=== PATIENT | female | born 1950 | race Caucasian/White ===

== ENCOUNTER 2016-08-25 18:13 | Inpatient (IN) | payer MEDICARE ==
--- NOTE | ~2016-08-25 | CR126 ---
[facility] A Service of [facility] & [facility] RADIOLOGY TEXT RESULTS PATIENT: AMOL ORTIZ LOCATION: [facility] 225-01 : 50 UNIT #: [id number] AGE: [address]: Chace Jfefries MD SEX: F ORDER DR: [id number] [facility] [address] [facility]. [place], [place] [address] [id number] MR#: [id number] Acc #: [id number] NAME: AMOL ORTIZ. : 1950 SEX: F STUDY DATE/TIME: 08/25/2016 18:16 UNIT: [facility] ROOM: STUDY DESCRIPTION: CR Foot Complete Min 3 View Lt Attending Physician: Glen Wynn M.D. Ordering Physician: Glen Wynn M.D. Primary Care Physician: Ra Owens M.D. MEDICAL IMAGING REPORT This report is preliminary unless electronic signature is present EXAM Left foot HISTORY Pain and swelling, no known injury, surgery 07/17/2016 for bone spur removal per patient. COMMENT 3 views of the left foot are reviewed. There is no comparison study of the left foot. There is a fracture at the base of the fifth metatarsal with displacement by about 9 mm. There is overlying soft tissue swelling. The bones are irregular in appearance and this is worrisome for possible infection and osteomyelitis. Please correlate further clinically. Findings best pursued with MRI, if the patient is a candidate. There is otherwise more diffuse soft tissue swelling and the bones are demineralized. There is some vascular calcifications concerning for diabetes or renal disease. 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 IMPRESSION 1. There is 9 mm displaced fracture at the base of the fifth metatarsal. The bones in this region are indistinct with some apparent irregular bony destruction and there is associated soft tissue swelling. This is concerning for infection. Please correlate for any clinical evidence of infection. Diagnosis of osteomyelitis and/or abscess is best pursued with an MRI of the left foot, with and without contrast, if the patient is a candidate. Please correlate with the surgical course. No prior films at this institution of the left foot. 2. Otherwise, areas of arthritis, bones are demineralized in general and soft tissue edema is seen in general. Vascular calcifications suggest underlying diabetes or renal disease. [facility] A Service of [facility] RADIOLOGY TEXT RESULTS PATIENT: AMOL ORTIZ LOCATION: C2A 225-01 : 50 UNIT #: [id number] AGE: [address]: Chace Jeffries MD SEX: F ORDER DR: STAT * RESULT Dictated by... Guadalupe Kent M.D. THIS IS AN ELECTRONICALLY VERIFIED REPORT Guadalupe Kent M.D. at 08/25/2016 11:08 PM FLORINDA/vaishali TD: 08/25/2016 18:58 JOB #: [id number] MEDICAL IMAGING REPORT Page 1 of 1 COPY
--- NOTE | ~2016-08-25 | MR60 ---
[facility] A Service of [facility] & [facility] RADIOLOGY TEXT RESULTS PATIENT: AMOL ORTIZ LOCATION: C2A : 50 UNIT #: [id number] AGE: [address]: Chace Jeffries MD SEX: F ORDER DR: [id number] [facility] [address] [facility] [place] [facility]. [place], [place] [address] [id number] I MR#: [id number] Acc #: [id number] NAME: AMOL ORTIZ. : 1950 SEX: F STUDY DATE/TIME: 08/26/2016 19:15 UNIT: C2 ROOM: 225 STUDY DESCRIPTION: MR Foot Wo Contrast Lt Attending Physician: Chace Jeffries M.D. Ordering Physician: Chace Jeffries M.D. Primary Care Physician: Ra Owens M.D. MRI CENTER REPORT This report is preliminary unless electronic signature is present. EXAM Left foot MRI without contrast, 08/26/2016 HISTORY 66-year-old female with left foot pain and swelling since 08/24/2016. Patient states recent surgery for bone spur removal 07/17/2016. Order requests evaluation for osteomyelitis left foot. History of diabetes. COMPARISON Left foot x-rays 06/25/2016 and 08/25/2016 TECHNIQUE Multiplanar, multisequence high-field MR imaging of the left foot was performed without IV gadolinium. FINDINGS Examination is limited by motion artifact on multiple sequences. Allowing for this, there is an ununited transverse fracture through the base of the fifth metatarsal. There is abnormal fluid in the fracture site and there is abnormal marrow edema and marrow replacement within the fracture fragment and base of the fifth metatarsal. The findings are highly concerning for osteomyelitis. There may be a developing abscess adjacent to the fracture site in the lateral soft tissues of the midfoot measuring 2.7 x 1 cm in size. There are multiple foci of gas within and adjacent to the questionable fluid collection concerning for infection with gas-forming organism. There is also abnormal marrow edema and marrow replacement in the distal lateral aspect of the cuboid, which is also concerning for developing osteomyelitis. There is subcutaneous soft tissue edema noted throughout the visualized midfoot, particularly the dorsal and lateral aspect. Generalized edema and atrophy of the intrinsic musculature of the foot are most consistent with chronic diabetic neuropathic change. [facility] A Service of [facility] & [facility] RADIOLOGY TEXT RESULTS PATIENT: AMOL ORTIZ LOCATION: [facility] 225-01 : 50 UNIT #: [id number] AGE: [address]: Chace Jeffries MD SEX: F ORDER DR: IMPRESSION 1. Ununited transverse fracture through the base of the fifth metatarsal. There is abnormal fluid at the fracture site as well as a suspected developing fluid collection along the lateral aspect of the fracture measuring at least 2.7 x 1 cm in size. This is concerning for a developing abscess. Multiple foci of gas noted within the suspected fluid collection and adjacent soft tissues, concerning for infection with gas-forming organism. 2. Abnormal marrow edema and marrow replacement in the fracture fragment of the fifth metatarsal and base of the fifth metatarsal most consistent with osteomyelitis. There is also abnormal marrow edema and marrow replacement in the distal lateral aspect of the cuboid concerning for early osteomyelitis. Preliminary wet read provided by Dr. Yahir Beckman at 2051 hours 08/26/2016. Dictated by... Jonh Decker M.D. THIS IS AN ELECTRONICALLY VERIFIED REPORT Jonh Decker M.D. at 08/28/2016 5:18 PM ARILE/vaishali TD: 08/27/2016 21:02 JOB #: [id number] MRI CENTER REPORT Page 1 of 1 COPY
--- NOTE | ~2016-08-25 | DS ---
Unit #: [id number] #: [id number] Patient: AMOL ORTIZ [id number] [address] [place], [place] [address] [id number] I MR#: [id number] NAME: AMOL ORTIZ. ROOM: 225 Age: 66 Sex: F Admission Date: 08/25/2016 : 1950 Discharge Date: 08/29/2016 Attending Physician: Chace Jeffries M.D. Primary Care Physician: Ra Owens M.D. DISCHARGE SUMMARY PRINCIPAL DISCHARGE DIAGNOSES 1. Left foot fifth metatarsal base fracture. 2. Left foot fifth metatarsal osteomyelitis. 3. Left foot abscess. 4. Type 2 diabetes mellitus. 5. Peripheral neuropathy. 6. Nephropathy. 7. Tobacco use. 8. Major depressive disorder. 9. Generalized anxiety disorder. 10. Chronic kidney disease stage 3. 11. Hyperlipidemia. 12. Tobacco use. PROCEDURE Bedside I and D by Podiatry on 08/28/16. 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 REASON FOR HOSPITALIZATION The patient is a 66-year-old white female with history of generalized anxiety disorder, major depressive disorder, type 2 diabetes mellitus with peripheral neuropathy and nephropathy, hyperlipidemia, tobacco use. The patient recently had a bone spur removed from the left foot fifth metatarsal. She was then walking about eight days prior to admission and had a sharp pain in the left lateral foot. It seemed to improve then she suddenly noticed that the wound had reopened up with bloody purulent discharge and she arrived in the emergency room. There, she was afebrile. Vital signs within normal limits. Creatinine was 1.5, GFR 35.9, alkaline phosphatase 104, CRP 1.4, sed rate 29. CBC normal. Three views of the left foot showed a 9 mm displaced fracture at the base of the fifth metatarsal and the patient was admitted. HOSPITAL COURSE The patient was admitted, placed on low dose sliding scale insulin, IV vancomycin, IV Zosyn. Dr. Shea, who had recently done her surgery was consulted. MRI of the foot was ordered. MRI showed an ununited transverse fracture of the base of the fifth metatarsal with a 2.5 x 1.0 cm abscess with gas formation and osteomyelitis. They did a bedside I and D. No cultures were obtained apparently. They are planning no further surgery at this time. So, the patient is being discharged home, although, truly, I felt that they should have opened the foot in the OR and gotten cultures, removed what bone seems to be there and clean the wound Unit #: [id number] #: [id number] Patient: AMOL ORTIZ but, in any case, she is being discharged home. Currently, her BMP is normal except for a creatinine of 1.5 and a GFR of 35.9. Her C-reactive protein repeated this morning was 0.6. Her CBC is normal except for hemoglobin of 10.7 and a platelet count of 127 but she has been on Lovenox since she has been here and that may be the culprit for the low platelets. In any case, she is being discharged home with: 1. A prescription for Augmentin 500 mg b.i.d. for 10 days. 2. Doxycycline 100 mg b.i.d. for 10 days. 3. Tylenol 650 mg p.o. q.6 p.r.n. 4. Neurontin 100 mg p.o. t.i.d. 5. Amitriptyline 100 mg t.i.d. 6. BuSpar 15 mg q.i.d. 7. Xanax 0.25 mg t.i.d. p.r.n. 8. Valium 5 mg b.i.d. p.r.n. 9. Lasix 20 mg four times daily. 10. Lovastatin 20 mg daily. 11. Lantus 60 units subcu q.h.s. 12. Tagamet 300 mg t.i.d. 13. Aspirin 81 mg daily. She is to follow up with Dr. Owens in one week and follow up with Dr. Seha in one week. 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 It states daily Betadine wet-to-dry dressings to the left foot per nursing. They will schedule an outpatient bone biopsy of the fifth metatarsal when she is discharged from the hospital. DIET She is on a Healthy Heart, constant carb diet. Dictated by... Chace Jeffries M.D. Justen TD: 08/30/2016 08:19 JOB #: [id number] DISCHARGE SUMMARY Page 1 of 1 X Chace Jeffries MD X DISCHARGE SUMMARY
--- NOTE | ~2016-08-25 | HP ---
Unit #: [id number] #: [id number] Patient: AMOL ROTIZ [id number] [address] [place], [place] [address] [id number] I MR#: [id number] NAME: AMOL ORTIZ ROOM: 225 Age: 66 Sex: F Admission Date: 08/25/2016 : 1950 Attending Physician: Chace Jeffries M.D. Primary Care Physician: Ra Owens M.D. 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 The wound had healed and then it suddenly popped open two days ago with bloody, purulent discharge. Arrived in the emergency room. There, she was afebrile. White count was normal. X-rays showed evidence of osteomyelitis at the base of the fifth metatarsal and she was admitted for same. ALLERGIES The patient has stated allergies to codeine and propoxyphene. MEDICATIONS Her medications prior to admission: 1. Lantus 60 units subcu q. h.s. 2. Tagamet 300 mg t.i.d. 3. BuSpar 15 mg four times daily. 4. Amitriptyline 100 mg t.i.d. 5. Lasix 20 mg q.i.d. 6. Metformin 850 mg daily. 7. Neurontin 100 mg t.i.d. 8. Aspirin 81 mg daily. 9. Lovastatin 20 mg daily. 10. Xanax 0.25 mg three times daily p.r.n. 11. Valium 5 mg b.i.d. p.r.n. SURGICAL HISTORY 1. Cholecystectomy. 2. Perirectal abscess. 3. Needle removed from her left foot. 4. Right foot fourth toe amputation. 5. Left foot surgery as mentioned above. PAST MEDICAL HISTORY 1. Major depressive disorder. 2. Generalized anxiety disorder. 3. Panic disorder. 4. Type 2 diabetes mellitus. 5. Chronic kidney disease. 6. 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 7. Hyperlipidemia. 8. Tobacco use. Unit #: [id number] #: [id number] Patient: AMOL ORTIZ SOCIAL HISTORY Smokes two packs of cigarettes daily. No alcohol or street drug use. FAMILY HISTORY Noncontributory. PHYSICAL EXAMINATION GENERAL: She is awake, alert, oriented x3, in no acute distress. VITAL SIGNS: ER vital signs - temp 98.3, pulse 71, respirations 16, blood pressure 148/63. Room air O2 sat 99%. HEENT: Unremarkable. NECK: Supple without JVD, bruits, adenopathy or thyromegaly. CHEST: Clear to auscultation. HEART: Regular rate and rhythm without any murmurs, rubs or gallops. ABDOMEN: Large, soft, nondistended, nontender with positive bowel sounds and no hepatosplenomegaly. EXTREMITIES: No clubbing, cyanosis or edema. /RECTAL: Deferred. NEUROLOGICAL: Grossly intact. Left foot has a small, about one inch, area that is scabbed over right now, not actively bleeding. There is swelling at the base of the fifth metatarsal. DIAGNOSTIC STUDIES LABORATORY: Lab values - CMP normal except for random blood sugar of 168, a creatinine of 1.5 and GFR of 35.9. Alkaline phos. 105, CRP 1.4, sed rate 29. CBC normal. IMAGING: Three views of the left foot - 9 mm displaced fracture base of the fifth metatarsal with evidence of surrounding inflammation consistent with osteomyelitis. IMPRESSION 1. Left foot osteomyelitis. 2. Left fifth metatarsal fracture. 3. Type 2 diabetes mellitus with peripheral neuropathy and nephropathy. 4. Generalized anxiety disorder. 5. Major depressive disorder. 6. Chronic kidney disease, stage 3. 7. Hyperlipidemia. 8. Tobacco use. PLAN IV antibiotics. Consult patient's surgeon. MRI of the left foot. Resume home meds less Glucophage and Valium. Other evaluation pending results of above. Please note - she is on Lovenox for DVT prophylaxis. Dictated by Chace Jeffries M.D. ABENA/renay TD: 08/26/2016 09:01 Unit #: [id number] #: [id number] Patient: AMOL ORTIZ JOB #: [id number] HISTORY AND PHYSICAL Page 1 of 1 X Chace Jeffries MD HISTORY AND PHYSICAL
[~2016-08-25 18:13] MED LIST: ALPRAZOLAM PO; AMITRIPTYLINE H50 MG PO; AMITRYPTYLINE PO; ASPIRIN EC81 M1 PO; ASPIRIN81 M2 PO; BUSPAR15 M1 DOB; BUSPAR30 MG PO; CIMETIDINE400 MG; CIMETIDINE400 MG PO; DIAZEPAM PO; GLUCOPHAGE500 MG PO; GLUCOPHAGE850 MG PO; LANTUS SOLOSTAR3 ML; LANTUS100 UNITS/ SUBQ; LASIX PO; LOVASTATIN20 M1 PO; LOVASTATIN20 MG PO; MULTI-DAY1 TAB PO; MULTI-VITAMIN1 EAC1 PO; NEPHROCAPS1 CAP DOB; NEURONTIN100 MG PO; VITAMIN B122500 MCG PO
[2016-08-25 18:52] LABS: BASOPHIL# 0.1 X10e3 (0-0.3); BASOPHIL% 1.1 % (0-2.5); EOSINOPHIL# 0.2 X10e3 (0-0.7); EOSINOPHIL% 3.9 % (0.0-7.0); HEMOGLOBIN 12.1 gm/dL (12.0-16.0); LYMPHOCYTE# 1.7 X10e3 (1.0-3.5); MEAN CELL VOLUME 92.4 FL (83-96); MEAN CORPUSCULAR HEMOGLOBIN 29.4 PG (28-34); MEAN CORPUSCULAR HGB CONC 31.8 g/dL (30-36); MEAN PLATELET VOLUME 8.3 FL (6.5-11.5); MONOCYTE# 0.4 X10e3 (0-1.0); MONOCYTE% 7.2 % (3.0-12.0); NEUTROPHIL# 3.2 X10e3 (1.5-7.1); NEUTROPHIL% 57.8 % (40-75); PLATELET COUNT 150 X10e3 (140-420); RED BLOOD COUNT 4.11 X10e (3.90-5.30); RED CELL DISTRIBUTION WIDTH 15.6 % (11.0-15.5); WHITE BLOOD COUNT 5.6 X10e3 (4.0-10.5)
[2016-08-25 18:58] LABS: DIFF IND NO
[2016-08-25 19:07] LABS: ALBUMIN SERUM 4.1 g/dL (3.5-5.0); BILIRUBIN, DIRECT 0.1 mg/dL (0.0-0.2); BILIRUBIN,INDIRECT 0.2 mg/dL (0.0-0.9); BILIRUBIN,TOTAL 0.3 mg/dL (0.2-2.0); BUN/CREATININE RATIO 11.33; CALCIUM SERUM 9.5 mg/dL (8.4-10.2); CREATININE SERUM 1.5 mg/dL (0.6-1.4); GLOM FILT RATE Estimated 35.9 mL/min (>60); POTASSIUM 3.6 mmol/L (3.5-5.1); PROTEIN TOTAL SERUM 7.8 g/dL (6.0-8.3)
[2016-08-25] MEDS ORDERED: LANTUS100 UNITS/ SUBQ (19:49)
[2016-08-25] MEDS ORDERED: CIMETIDINE300 MG PO (19:50)
[2016-08-25] MEDS ORDERED: AMITRIPTYLINE100 MG PO (19:51)
[2016-08-25] MEDS ORDERED: BUSPAR15 M2 PO (19:51)
[2016-08-25] MEDS ORDERED: LASIX20 MG PO (19:52)
[2016-08-25] MEDS ORDERED: NEURONTIN100 MG PO (19:53)
[2016-08-25] MEDS ORDERED: METFORMIN HCL850 MG PO (19:53)
[2016-08-25] MEDS ORDERED: ASPIRIN81 M2 PO (19:53)
[2016-08-25] MEDS ORDERED: XANAX0.5 M1 PO (19:54)
[2016-08-25] MEDS ORDERED: LOVASTATIN20 M2 PO (19:54)
[2016-08-25] MEDS ORDERED: DIAZEPAM PO (19:55)
[2016-08-27 08:24] LABS: CALCIUM SERUM 8.4 mg/dL (8.4-10.2); CREATININE SERUM 1.6 mg/dL (0.6-1.4); GLOM FILT RATE Estimated 33.2 mL/min (>60); POTASSIUM 3.6 mmol/L (3.5-5.1)
[2016-08-29 05:54] LABS: BASOPHIL# 0.1 X10e3 (0-0.3); EOSINOPHIL# 0.3 X10e3 (0-0.7); EOSINOPHIL% 4.9 % (0.0-7.0); HEMATOCRIT 32.4 % (35.0-45.0); HEMOGLOBIN 10.7 gm/dL (12.0-16.0); LYMPHOCYTE# 1.9 X10e3 (1.0-3.5); LYMPHOCYTE% 30.3 % (17.0-45.0); MEAN CELL VOLUME 91.6 FL (83-96); MEAN CORPUSCULAR HEMOGLOBIN 30.1 PG (28-34); MEAN CORPUSCULAR HGB CONC 32.9 g/dL (30-36); MEAN PLATELET VOLUME 8.4 FL (6.5-11.5); MONOCYTE# 0.5 X10e3 (0-1.0); NEUTROPHIL# 3.6 X10e3 (1.5-7.1); NEUTROPHIL% 55.8 % (40-75); PLATELET COUNT 127 X10e3 (140-420); RED BLOOD COUNT 3.54 X10e (3.90-5.30); RED CELL DISTRIBUTION WIDTH 15.5 % (11.0-15.5); WHITE BLOOD COUNT 6.4 X10e3 (4.0-10.5)
[2016-08-29 06:19] LABS: DIFF IND NO
[2016-08-29 06:23] LABS: BUN/CREATININE RATIO 11.33; CALCIUM SERUM 8.6 mg/dL (8.4-10.2); CREATININE SERUM 1.5 mg/dL (0.6-1.4); GLOM FILT RATE Estimated 35.9 mL/min (>60); POTASSIUM 3.6 mmol/L (3.5-5.1)
[2016-08-29] MEDS ORDERED: DOXYCYCLINE HY100 M3 PO (18:06)
[2016-08-29] MEDS ORDERED: AUGMENTIN PO (18:07)
== END 2016-08-29 18:40 | disposition home or self-care (01) | DRG 982 ==
LOC: CED 18:13 → CEDOF 19:33 → C2A 21:00
PROVIDERS: Emergency Medicine; Internal Medicine; Podiatrist Foot & Ankle Surgery
PROC: 0Q9P0ZZ Drainage of Left Metatarsal, Open Approach (ICD-10-PCS; principal; 2016-08-28)
DX: E11.69 Type 2 diabetes mellitus with other specified complication (principal); T81.31XA Disruption of external operation (surgical) wound, not elsewhere classified, initial encounter; M86.172 Other acute osteomyelitis, left ankle and foot; E11.21 Type 2 diabetes mellitus with diabetic nephropathy; L02.612 Cutaneous abscess of left foot; E11.42 Type 2 diabetes mellitus with diabetic polyneuropathy; Y83.8 Other surgical procedures as the cause of abnormal reaction of the patient, or of later complication, without mention of misadventure at the time of the procedure; S92.352A Displaced fracture of fifth metatarsal bone, left foot, initial encounter for closed fracture; X58.XXXA Exposure to other specified factors, initial encounter; E11.22 Type 2 diabetes mellitus with diabetic chronic kidney disease; N18.3 Chronic kidney disease, stage 3 (moderate); Z79.4 Long term (current) use of insulin; F17.210 Nicotine dependence, cigarettes, uncomplicated; F32.9 Major depressive disorder, single episode, unspecified; F41.1 Generalized anxiety disorder; E78.5 Hyperlipidemia, unspecified; Z79.82 Long term (current) use of aspirin; Z88.5 Allergy status to narcotic agent; Z90.49 Acquired absence of other specified parts of digestive tract
CPT/HCPCS: 73630; 73718; 80048; 80076; 80202; 82947; 85025; 85652; 86140; 96365; 96367; 99291; J0696; J1650; J1815; J2270; J2405; J2543; J3370

== ENCOUNTER → 2017-01-23 | Day surgery (SDC) | payer MEDICARE ==
[~2017-01-23] MED LIST changes: +AMITRIPTYLINE100 MG PO; +AUGMENTIN PO; +BUSPAR15 M2 PO; +CIMETIDINE300 MG PO; +DOXYCYCLINE HY100 M3 PO; +LASIX20 MG PO; +LOVASTATIN20 M2 PO; +METFORMIN HCL850 MG PO; +XANAX0.5 M1 PO
--- NOTE | ~2017-01-23 | OR ---
Unit #: [id number] #: [id number] Patient: AMOL ORTIZ [id number] [facility]. [address] [place], [place] [address] [id number] MR#: [id number] NAME: AMOL ORTIZ ROOM: Date of Procedure: 01/23/2017 Admission Date: 01/23/2017 Surgeon: Edil Munoz Jr., M.D. : 1950 Attending Physician: Edil Munoz Jr., M.D. Primary Care Physician: Ra Owens M.D. PROCEDURE OPERATIVE NOTE INDICATION FOR PROCEDURE The patient is a 66-year-old white female who recently was seen by family physician and was noted to have a small, nodular mass of the left lower quadrant abdominal wall area which has started to bleed and ulcerate. It was felt this could be a skin cancer, possibly pyoderma gangrenosum. She is brought in at this time for excision of this under local anesthesia at her request. She understands the procedure including the risks including that of infection, recurrence and pain and consents. PREOPERATIVE DIAGNOSIS Skin lesion left lower quadrant abdominal wall, rule out cancer. POSTOPERATIVE DIAGNOSIS Skin lesion left lower quadrant abdominal wall, rule out cancer, noting approximately a 1 cm to 2 cm area. ANESTHESIA 1% Xylocaine with epinephrine locally. SURGEON Dr. Edil Munoz Jr. OPERATION Excision of raised bleeding lesion of the left lower quadrant of abdominal wall. PROCEDURE The patient was positioned in supine position after being prepped and draped in routine fashion. Was anesthetized locally in the area of the lesion with 1% Xylocaine with epinephrine. An elliptical incision was made around the lesion with it being totally excised of the surrounding tissue after the area was locally anesthetized with 1% Xylocaine with epinephrine. This was done with a #10 blade scalpel and the lesion was completely excised from the surrounding tissue down to the deeper subcu tissue. After it was removed, it was sent to pathology. Hemostasis achieved with Bovie cautery in the deeper tissue and subcu tissue approximated with interrupted 3-0 Vicryl suture. The skin edges approximated with continuous 3-0 nylon suture. Ointment and sterile dressing was applied externally. Estimated blood loss minimal. No drains used, no complications, no fluids given. The patient was discharged in satisfactory condition. Unit #: [id number] #: [id number] Patient: AMOL ORTIZ Dictated by... Edil Munoz Jr., MJohnathon MCMAHON/renay TD: 01/24/2017 08:54 JOB #: [id number] PROCEDURE OPERATIVE NOTE Page 1 of 1 X Edil Munoz MD X PROCEDURE OPERATIVE NOTE
== END | disposition home or self-care (01) ==
LOC: CSUR 09:06
DX: L88 Pyoderma gangrenosum (principal); L92.8 Other granulomatous disorders of the skin and subcutaneous tissue; L98.499 Non-pressure chronic ulcer of skin of other sites with unspecified severity; E11.9 Type 2 diabetes mellitus without complications; Z79.4 Long term (current) use of insulin; E66.9 Obesity, unspecified
CPT/HCPCS: 82947; 88305